=== PATIENT | female | born 1955 | race Caucasian/White ===

== ENCOUNTER → 2017-11-06 | Outpatient (CLI) | payer OTHER ==
--- NOTE | 2017-11-06 17:54 | KCIC ---
Bilateral digital screening mammograms: Reason for examination: Routine screening. Comparison is made to previous studies dated 10/26/2016 and 06/04/2012 Interpretation was made with the benefit of CAD. The skin and nipples show no abnormalities. No abnormal axillary lymph nodes are seen. The breast parenchyma shows scattered fibroglandular density. (Breast density: Category B.) There are no dominant masses, suspicious calcifications or architectural distortions. Some benign calcifications are present. Impression: No evidence of malignancy. Recommend routine screening. BI-RADS category 2: Benign "Our facility is accredited by the [employer] Mammography [employer]." This patient's information has been entered into a reminder system for the patient to be notified with the results of her examination and a target date for the next mammogram. Electronically signed by: Suzy Collazo MD (11/06/2017 5:51 PM) [id number]
== END | disposition home or self-care (01) ==
LOC: KCIC MAMMO 15:42
PROVIDERS: ATTEND Family Medicine
DX: Z12.31 Encounter for screening mammogram for malignant neoplasm of breast (principal)
CPT/HCPCS: G0202; 77067

== ENCOUNTER → 2018-11-13 | Outpatient (CLI) | payer MEDICARE ==
--- NOTE | 2018-11-13 10:03 | KCIC ---
EXAM: Bilateral digital screening mammogram with tomosynthesis. HISTORY: 63-year-old female presents for screening mammography. TECHNIQUE: Full-field digital craniocaudal and mediolateral oblique 2D and 3D tomosynthesis images of both breasts are obtained for evaluation. Computer aided detection with [employer] software version 9.3 was applied. COMPARISON: 11/06/2017 through 09/12/2013 BREAST PARENCHYMAL DENSITY: Level B - Scattered fibroglandular densities. FINDINGS: There is a small asymmetry within the posterior lateral aspect of the left breast in the craniocaudal projection, without a clear correlate on prior studies or the mediolateral oblique projection. There are few benign calcifications. There is no architectural distortion. IMPRESSION: BI-RADS Category 0: Additional imaging needed. RECOMMENDATION: Further evaluation with a true lateral view and spot compression craniocaudal view of the asymmetry within the posterior lateral aspect of the left breast is recommended. Sonographic imaging can also be performed if deemed indicated based on additional imaging findings. If your mammogram demonstrates that you have dense breast tissue, which could hide abnormalities, and if you have other risk factors for breast cancer that have been identified, you might benefit from supplemental screening tests that may be suggested by your ordering physician. Dense breast tissue, in and of itself, is a relatively common condition. This information is not provided to cause undue concern, but rather to raise your awareness and to promote discussion with your physician regarding the presence of other risk factors, in addition to dense breast tissue. A report of your mammography results will be sent to you and your physician. You should contact your physician if you have any questions or concerns regarding this report. Mammography is a sensitive method for finding small breast cancers, but it does not detect them all and is not a substitute for careful clinical examination. A negative mammogram does not negate a clinically suspicious finding and should not result in delay in biopsying a clinically suspicious abnormality. PQRS compliance statement - Patient information was entered into a reminder system with a target due date for the next mammogram. "Our facility is accredited by the [employer] Mammography [employer]." Electronically signed by: Yazmin Johnson MD (11/13/2018 9:59 AM) [facility]
== END | disposition home or self-care (01) ==
LOC: KCIC MAMMO 08:30
PROVIDERS: ATTEND Family Medicine
DX: Z12.31 Encounter for screening mammogram for malignant neoplasm of breast (principal)
CPT/HCPCS: 77063; 77067

== ENCOUNTER → 2018-12-04 | Outpatient (CLI) | payer MEDICARE ==
--- NOTE | 2018-12-04 10:21 | KCIC ---
Left breast diagnostic digital mammograms: Reason for examination: Nodular density on screening mammogram. Comparison is made to mammographic exam dated 11/13/2018. Interpretation is made with the benefit of CAD. Coned compression views were obtained and CC and exaggerated CC projection and additional lateral views were obtained. With these additional views, the area of nodularity appears to dissipate and probably represented some superimposed tissues. Further evaluation with ultrasound will follow. IMPRESSION: No suspicious abnormalities with the additional views. Ultrasound to follow. BI-RADS Category 0: Incomplete. Needs additional imaging evaluation. Left breast ultrasound: Ultrasound examination of the left breast was performed with attention to the area of mammographic concern from screening mammogram and at the left axilla. There is a small patch of benign fibroglandular tissue within the predominantly fatty breast tissue. No discrete cystic or solid nodules are seen. No abnormal appearing lymph nodes are seen in the axilla. IMPRESSION: No suspicious abnormality evident in the left breast sonographically. Recommend routine mammographic follow-up. BI-RADS Category 2: Benign. "Our facility is accredited by the [employer] Mammography [employer]." This patient's information has been entered into a reminder system for the patient to be notified with the results of her examination and a target date for the next mammogram. Electronically signed by: Suzy Collazo MD (12/04/2018 10:16 AM) [facility]
== END | disposition home or self-care (01) ==
LOC: KCIC MAMMO 08:17
PROVIDERS: ATTEND Family Medicine
DX: R92.8 Other abnormal and inconclusive findings on diagnostic imaging of breast (principal)
CPT/HCPCS: 76641; 77065

== ENCOUNTER → 2019-09-24 | Outpatient (CLI) | payer MEDICARE ==
--- NOTE | 2019-09-24 12:18 | KCIC ---
MRI study of the right shoulder without contrast Clinical indications: Right shoulder pain extending into right arm and recent weeks after repetitive lifting. TECHNIQUE: Noncontrast MRI sequences of the right shoulder were performed in all 3 planes. FINDINGS: There is increased signal within the supraspinatus tendon and infraspinatus tendon consistent with tendinosis. No complete rotator cuff tear is evident. The subscapularis tendon is intact but there is increased signal within the lateral aspect consistent with tendinosis. There is increased signal within the tendon of the long of the biceps within the bicipital groove consistent with tendinosis and partial longitudinal split tear. No complete tear of this tendon is seen. No muscle atrophy is seen. There is moderate degenerative osteoarthritis and spurring of the AC joint. There is spurring of the inferior edge of the acromial process. Type III acromial process is seen. These findings may impinge the acromial humeral space. Mild chronic cystic change of the posterior lateral aspect of the humeral head is seen secondary to chronic impingement. There is moderate degenerative spurring of the glenohumeral joint. There is mild subchondral cyst formation of the glenoid. There is thinning of the articular cartilage secondary to chondromalacia. Small glenohumeral joint effusion is seen. No loose body is evident. No fracture is seen. There is increased degenerative signal within the superior aspect of the glenoid labrum. Otherwise no definite glenoid labral tear is seen. No paralabral ganglion cyst or spinoglenoid notch ganglion cyst is seen. IMPRESSION: Tendinosis of the supraspinatus and infraspinatus and subscapularis tendons of the rotator cuff. No complete rotator cuff tear is seen. Impingement of the acromial humeral space. Tendinosis and partial longitudinal split tear of the tendon of the long of the biceps within the bicipital groove. 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 Degenerative signal abnormality of the superior aspect of the glenoid labrum. Otherwise no discrete labral tear is seen. Electronically signed by: Landen Jordan MD (09/24/2019 12:15 PM) [facility]
== END | disposition home or self-care (01) ==
LOC: KCIC MRI 07:50
PROVIDERS: ATTEND Family Medicine
DX: S46.811A Strain of other muscles, fascia and tendons at shoulder and upper arm level, right arm, initial encounter (principal); M19.011 Primary osteoarthritis, right shoulder; M94.211 Chondromalacia, right shoulder; M25.411 Effusion, right shoulder; X58.XXXA Exposure to other specified factors, initial encounter; Y93.89 Activity, other specified; Y92.89 Other specified places as the place of occurrence of the external cause; Y99.8 Other external cause status
CPT/HCPCS: 73221

== ENCOUNTER → 2020-01-28 | Outpatient (CLI) | payer MEDICARE, OTHER ==
--- NOTE | 2020-01-28 16:25 | KCIC ---
Bilateral digital screening mammograms with 3-D tomosynthesis: Reason for examination: Routine screening. Comparison is made to previous studies dated back to 10/13/2014. Bilateral mammograms in CC and oblique projections were obtained with 2-D imaging and 3-D tomosynthesis imaging on a Siemens Inspiration unit and reviewed on the workstation. Interpretation was made with the benefit of CAD. The skin and nipples show no abnormalities. No abnormal axillary lymph nodes are seen. The breast parenchyma shows scattered fatty and fibroglandular density. (Breast density: Category B.) There continues to be some parenchymal asymmetry posterior laterally in the right breast seen best on CC view which is stable. There are no new dominant masses, suspicious calcifications or architectural distortion. Benign calcifications are present. Impression: No evidence of malignancy. Recommend routine screening. BI-RAD Category 2: Benign. "Our facility is accredited by the [employer]ammography [employer]." This patient's information has been entered into a reminder system for the patient to be notified with the results of her examination and a target date for the next mammogram. Electronically signed by: Suzy Collazo MD (01/28/2020 4:22 PM) [id number]
== END | disposition home or self-care (01) ==
LOC: KCIC MAMMO 09:11
PROVIDERS: ATTEND Family Medicine
DX: Z12.31 Encounter for screening mammogram for malignant neoplasm of breast (principal)
CPT/HCPCS: 77063; 77067

== ENCOUNTER → 2021-04-07 | Outpatient (CLI) | payer MEDICARE ==
--- NOTE | 2021-04-07 09:04 | KCIC ---
Bilateral digital screening mammograms with 3-D tomosynthesis: Reason for examination: Routine screening. Comparison is made to previous studies dated back to 10/13/2014. Bilateral mammograms in CC and oblique projections were obtained with 2-D imaging and 3-D tomosynthes is imaging on a Siemens Inspiration unit and reviewed on the workstation. Interpretation was made wit h the benefit of CAD. The skin and nipples show no abnormalities. No abnormal axillary lymph nodes are seen. The breast par enchyma shows scattered fatty and fibroglandular density. (Breast density: Category B.) There continu es be some mild patchy asymmetry posterior laterally in the right breast on cc view which is stable. There are no new dominant masses, suspicious calcifications or architectural distortion. Some benign calcifications remain present on the right. Impression: No evidence of malignancy. Recommend routine screening. BI-RAD Category 2: Benign. "Our facility is accredited by the [employer] Mammography Program." This patient's information has been entered into a reminder system for the patient to be notified wit h the results of her examination and a target date for the next mammogram. Electronically signed by: Suzy Collazo MD (04/07/2021 9:02 AM) [id number]
== END ==
LOC: KCIC MAMMO 08:01
PROVIDERS: ATTEND Family Medicine
DX: Z12.31 Encounter for screening mammogram for malignant neoplasm of breast (principal)
CPT/HCPCS: 77063; 77067

== ENCOUNTER → 2021-04-21 | Outpatient (CLI) | payer MEDICARE ==
--- NOTE | 2021-04-21 09:28 | KCIC ---
EXAM: Abdomen sonogram. HISTORY: Abnormal liver enzyme laboratory values. TECHNIQUE: Sonographic imaging of the abdomen was performed. COMPARISON: None. FINDINGS: The liver is normal in size. No focal hepatic lesion is seen. The gallbladder is unremarkab le. The common bile duct is normal in caliber. There is a suspected 6 mm nonobstructing left renal st one. There is no hydronephrosis. The pancreas, aorta and inferior vena cava are unremarkable. There a re calcified splenic granulomas. The spleen is normal in size. IMPRESSION: 1. No acute sonographic finding. 2. Suspected nonobstructing left renal stone. Electronically signed by: Yazmin Johnson MD (04/21/2021 9:26 AM) [id number]
== END ==
LOC: KCIC US 08:37
PROVIDERS: ATTEND Family Medicine
DX: R74.01 Elevation of levels of liver transaminase levels (principal)
CPT/HCPCS: 76700